=== PATIENT | female | born 1995 ===

== ENCOUNTER 2021-01-17 22:03 | Emergency (ER) ==
[~2021-01-17] VITALS: Ht 149.9 cm; Wt 92.1 kg
[2021-01-17 22:04] VITALS: BP 132/93
--- NOTE | 2021-01-18 00:11 | REPVR ---
PROCEDURE INFORMATION: Exam: XR Left Toe(s) Exam date and time: 01/17/2021 10:55 PM Age: 25 years old Clinical indication: Pain; Toes; Left; Additional info: Great toe pain after a fall TECHNIQUE: Imaging protocol: XR Left toes. Views: Minimum 2 views. COMPARISON: No relevant prior studies available. 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 No acute fracture or malalignment. Joint spaces are unremarkable. Soft tissues: Unremarkable. IMPRESSION: No fracture or malalignment. Electronically signed by: Daquan Botello On 01/18/2021 00:11:25 AM
== END 2021-01-18 01:59 | disposition left against medical advice (07) ==
LOC: M ED 22:03
DX: Z53.21 Procedure and treatment not carried out due to patient leaving prior to being seen by health care provider (principal)

== ENCOUNTER → 2021-04-05 | Outpatient (REF) | payer OTHER | LOC: M WUC 18:46 | PROVIDERS: ATTEND Nurse Practitioner Family | DX: N76.0 Acute vaginitis (principal) ==